=== PATIENT | male | born 1955 | race Caucasian/White ===

== ENCOUNTER → 2017-09-12 | Outpatient (CLI) | payer BC ==
[~2017-09-12] MED LIST: KRIL1000 PO; MULT-506 PO; NUTR-218 PO
[2017-09-12 12:57] LABS: ALT/SGPT 33 U/L (12-78); BLOOD UREA NITROGEN 18 mg/dl (7-18); BUN/CREATININE RATIO 16.5 (10-20); CARBON DIOXIDE 30 mmol/L (21-32); CHLORIDE 103 mmol/L (98-107); CHOLESTEROL 259 mg/dl (0-200); CREATININE 1.11 mg/dl (0.60-1.40); GLUCOSE 125 mg/dl (70-99); POTASSIUM 3.8 mmol/L (3.5-5.1); SODIUM 140 mmol/L (136-145); TRIGLYCERIDES 225 mg/dl (0-150); VERY LOW DENSITY LIPOPROT CALC 45 mg/dl
[2017-09-12 12:59] LABS: ALB/GLOB RATIO 1.2 (0.9-2); ALKALINE PHOSPHATASE 116 U/L (45-117); AST/SGOT 15 U/L (15-37); CHOLESTEROL/HDL RATIO 6.3; HDL CHOLESTEROL 41 mg/dl; LDL CHOLESTEROL CALCULATED 173 mg/dl
== END | disposition home or self-care (01) ==
LOC: C.LABPVFM 07:32
PROVIDERS: ATTEND Nurse Practitioner Family
DX: I10 Essential (primary) hypertension (principal)

== ENCOUNTER → 2018-01-09 | Outpatient (CLI) | payer OTHER ==
[2018-01-09 12:59] LABS: ALT/SGPT 56 U/L (12-78); AST/SGOT 20 U/L (15-37)
== END | disposition home or self-care (01) ==
LOC: C.LABPVFM 08:27
PROVIDERS: ATTEND Nurse Practitioner Family
DX: E78.00 Pure hypercholesterolemia, unspecified (principal)

== ENCOUNTER → 2018-02-20 | Outpatient (CLI) | payer OTHER ==
[2018-02-20 14:04] LABS: ALBUMIN 3.9 gm/dl (3.4-5.0); ALT/SGPT 57 U/L (12-78); AST/SGOT 23 U/L (15-37); BLOOD UREA NITROGEN 14 mg/dl (7-18); CALCIUM 8.9 mg/dl (8.5-10.1); CARBON DIOXIDE 29 mmol/L (21-32); CHOLESTEROL 166 mg/dl (0-200); CREATININE 1.16 mg/dl (0.60-1.40); GLUCOSE 224 mg/dl (70-99); POTASSIUM 4.1 mmol/L (3.5-5.1); SODIUM 138 mmol/L (136-145)
[2018-02-20 14:07] LABS: ALKALINE PHOSPHATASE 139 U/L (45-117); LDL CHOLESTEROL CALCULATED 98 mg/dl; TOTAL PROTEIN 7.2 gm/dl (6.4-8.2)
== END | disposition home or self-care (01) ==
LOC: C.LABPVFM 07:58
PROVIDERS: ATTEND Nurse Practitioner Family
DX: I10 Essential (primary) hypertension (principal); E78.00 Pure hypercholesterolemia, unspecified

== ENCOUNTER 2018-05-22 08:36 | Emergency (ER) | payer OTHER ==
[~2018-05-22] VITALS: Ht 177.8 cm; Wt 96.0 kg
[~2018-05-22 08:36] MED LIST changes: +ASPI81TA28 PO; +ATOR-22 PO; +IBUP-103 PO; -KRIL1000 PO; +LISI-725 PO; -MULT-506 PO; -NUTR-218 PO
[2018-05-22 08:40] VITALS: TEMP 36.4; Ht 177.8 cm; Wt 96.0 kg
[2018-05-22] MEDS ORDERED: SODIUM CHLORIDE 0.9% 1000ML 1,000 ML IV STA ×2 (08:51→10:36)
[2018-05-22] MEDS ORDERED: MoRPHine SULFATE 4 MG/ML 1 ML CARP\\VIAL IV STA (08:51)
[2018-05-22] MEDS ORDERED: OPTIRAY 320 IV PRN (09:00)
--- NOTE | 2018-05-22 09:09 | EMERGENCY ROOM VISIT NOTE ---
History Report prepared by Jovon: Christopher Adkins Under the Supervision of: Dr. Neville James M.D. First contact with patient: 08:48 Chief Complaint: RECTAL BLEEDING Stated Complaint: BLOODY STOOL,BELLY PAIN History of Present Illness The patient is a 62 year old white male with a past medical history of kidney stones, asthma, and polyp removal who presents to the Emergency Room with complaints of intermittent and severe abdominal pain that began this morning at 0400, 5 hours ago. The patient notes that his pain is localized to the left lower abdominal quadrant. He also states that he noticed "medium" red blood in the toiled bowl this morning at 0500, 4 hours ago. He is nauseous as well. The patient did have a recent colonoscopy with polyp removal last week. Source of History: patient Onset: 5 hours ago Position: abdomen (LLQ) Symptom Intensity: severe Timing: intermittent Associated Symptoms: + nausea Note: Rectal bleeding Review of Systems See HPI for pertinent positives and negatives. A total of ten systems were reviewed and were otherwise negative. Past Medical & Surgical Medical Problems: (1) Asthma, Unspecified (2) Calculus Of Kidney (3) History Of Tobacco Use Social History Smoking Status: Never Smoker Marital Status: Housing Status: lives with significant other Current/Historical Medications Scheduled Aspirin (Aspirin Ec), 81 MG PO QPM Atorvastatin (Lipitor), 20 MG PO QPM Ibuprofen Tab (Advil), 400 MG PO PRN Lisinopril (Zestril), 20 MG PO QAM Allergies Coded Allergies: Shellfish (Verified Allergy, Unknown, CRAB? ITCHY RASH HIVES, 05/05/18) Unclassified Drugs (Verified Allergy, Unknown, SOB WITH ASTHMA INHALER- BUTANE PROPELLENT GAVE SOB, 05/05/18) Physical Exam Vital Signs Date Time Temp Pulse Resp B/P (MAP) Pulse Ox O2 Delivery O2 Flow Rate FiO2 05/22/18 11:33 78 16 102/64 05/22/18 10:56 84 16 88/59 97 Room Air 05/22/18 10:36 62 16 81/52 98 Room Air 05/22/18 09:47 74 16 93/63 94 Room Air 05/22/18 09:22 76 16 94/65 94 Room Air 05/22/18 09:07 85 05/22/18 08:40 36.4 123 18 123/70 99 Room Air Physical Exam GENERAL: Awake, alert, well-appearing, NAD HENT: Normocephalic, atraumatic. EYES: Normal conjunctiva. Sclera non-icteric. PERRL. No anisocoria. NECK: Supple. No nuchal rigidity. FROM. RESPIRATORY: CTAB, no rhonchi, wheezing, crackles CARDIAC: Tachycardic and regular, no MRG ABDOMEN: Soft, NTND, BS+, negative obturator's, negative psoas. MSK: No chest wall TTP, no LE edema NEURO: GCS 15, CN 2-12 intact, moves all 4s on command SKIN: No rash or jaundice noted. RECTAL: Exam reveals bright red blood per rectum, no pain, no fissure, no external hemorrhoids. Medical Decision & Procedures ER Provider Diagnostic Interpretation: Radiology results as stated below per my review and radiologist interpretation: ABDOMEN AND PELVIS CT WITH IV CONTRAST CT DOSE: 559.48 mGy.cm HISTORY: Acute generalized abdominal pain ab pain, BRBPR, recent polypectomy on 05/13 TECHNIQUE: Multiaxial CT images of the abdomen and pelvis were performed following the use of intravenous contrast. A dose lowering technique was utilized adhering to the principles of ALARA. COMPARISON STUDY: CT abdomen and pelvis 06/22/2008, KUB 12/12/2014. FINDINGS: Mild dependent subsegmental bibasilar atelectasis. No pneumatosis or pneumoperitoneum identified. Imaged inferior cardiac chambers are unremarkable. Coronary arterial calcifications are noted. Gallbladder, spleen, pancreas and adrenal glands are unremarkable. Mildly decreased attenuation of the liver may reflect hepatic steatosis. No intrahepatic biliary ductal dilation. Nonobstructing left nephrolithiasis with largest calculus measuring 4 mm within the superior pole left kidney. Hypodense lesions about the left kidney measuring up to 1.3 cm suggest renal cysts.Exophytic hyperdense 1.5 cm lesion of the inferior pole right kidney, image 223 series 3 previously measured 7 mm suggesting proteinaceous or hemorrhagic cyst previously noted nonobstructing right nephrolithiasis are not definitively seen on today's contrast-enhanced exam. There are no ureteral calculi or obstructive uropathy. Prostamegaly. Urinary bladder is unremarkable. Fat filled left inguinal hernia. Mild mixed plaquing of the aorta without aneurysm. IVC is within normal limits. There are no pathologically enlarged lymph nodes. There is no bowel obstruction. Air-fluid levels are noted throughout the large bowel. Terminal ileum is unremarkable. The appendix is not definitively seen. No secondary signs of acute appendicitis. No mesenteric inflammatory changes or ascites. There are multiple areas of ill-defined soft tissue nodularity about the subcutaneous tissues, notably about the anterior abdominal wall and lateral flanks measuring up to approximately 8-9 mm. Bones appear intact. IMPRESSION: 1. No acute intra-abdominal or intrapelvic abnormality identified. 2. No pneumoperitoneum, bowel obstruction or focal bowel wall thickening. 3. Air-fluid levels throughout the colon may reflect diarrheal illness. 4. Left nephrolithiasis without ureteral calculi or obstructive uropathy. 5. Hyperdense 1.5 cm exophytic lesion of the inferior pole right kidney is indeterminate on this single phase study however may reflect a hemorrhagic or proteinaceous cyst. 6. Multiple ill-defined subcentimeter areas of soft tissue nodularity about the subcutaneous tissues are indeterminate. Areas of prior medicinal subcutaneous injection could have this appearance. Electronically signed by: Palomo Wong M.D. 05/22/2018 9:59 AM Dictated Date/Time: 05/22/2018 9:45 AM Laboratory Results 05/22/18 08:55 Red Blood Count 4.47, Mean Corpuscular Volume 92.4, Mean Corpuscular Hemoglobin 32.2, Mean Corpuscular Hemoglobin Concent 34.9, Mean Platelet Volume 10.9, Neutrophils (%) (Auto) 53.6, Lymphocytes (%) (Auto) 36.5, Monocytes (%) (Auto) 7.4, Eosinophils (%) (Auto) 1.3, Basophils (%) (Auto) 1.1, Neutrophils # (Auto) 4.04, Lymphocytes # (Auto) 2.75, Monocytes # (Auto) 0.56, Eosinophils # (Auto) 0.10, Basophils # (Auto) 0.08 05/22/18 08:55 Test 05/22/18 08:55 05/22/18 09:05 White Blood Count 7.54 K/uL (4.8-10.8) Red Blood Count 4.47 M/uL (4.7-6.1) Hemoglobin 14.4 g/dL (14.0-18.0) Hematocrit 41.3 % (42-52) Mean Corpuscular Volume 92.4 fL (80-100) Mean Corpuscular Hemoglobin 32.2 pg (25-34) Mean Corpuscular Hemoglobin Concent 34.9 g/dl (32-36) Platelet Count 233 K/uL (130-400) Mean Platelet Volume 10.9 fL (7.4-10.4) Neutrophils (%) (Auto) 53.6 % Lymphocytes (%) (Auto) 36.5 % Monocytes (%) (Auto) 7.4 % Eosinophils (%) (Auto) 1.3 % Basophils (%) (Auto) 1.1 % Neutrophils # (Auto) 4.04 K/uL (1.4-6.5) Lymphocytes # (Auto) 2.75 K/uL (1.2-3.4) Monocytes # (Auto) 0.56 K/uL (0.11-0.59) Eosinophils # (Auto) 0.10 K/uL (0-0.5) Basophils # (Auto) 0.08 K/uL (0-0.2) RDW Standard Deviation 43.3 fL (36.4-46.3) RDW Coefficient of Variation 12.8 % (11.5-14.5) Immature Granulocyte % (Auto) 0.1 % Immature Granulocyte # (Auto) 0.01 K/uL (0.00-0.02) Prothrombin Time 11.1 SECONDS (9.0-12.0) Prothromb Time International Ratio 1.1 (0.9-1.1) Activated Partial Thromboplast Time 23.8 SECONDS (21.0-31.0) Partial Thromboplastin Ratio 0.9 Est Creatinine Clear Calc Drug Dose 78.7 ml/min Estimated GFR () 78.9 Estimated GFR (Non- 68.1 BUN/Creatinine Ratio 17.5 (10-20) Calcium Level 8.7 mg/dl (8.5-10.1) Total Bilirubin 1.0 mg/dl (0.2-1) Direct Bilirubin 0.2 mg/dl (0-0.2) Aspartate Amino Transf (AST/SGOT) 18 U/L (15-37) Alanine Aminotransferase (ALT/SGPT) 35 U/L (12-78) Alkaline Phosphatase 97 U/L (45-117) Total Protein 6.3 gm/dl (6.4-8.2) Albumin 3.6 gm/dl (3.4-5.0) Lipase 88 U/L (73-393) Bedside Hemoglobin 13.6 g/dl (14.0-18.0) Bedside Hematocrit 40 % (42-52) Bedside Sodium 142 mEq/L (135-144) Bedside Potassium 3.8 mEq/L (3.3-5.0) Bedside Chloride 104 mEq/L (101-112) Bedside Total CO2 22 mEq/l (24-31) Anion Gap 20.0 mmol/L (16-25) Bedside Blood Urea Nitrogen 21 mg/dl (7-18) Bedside Creatinine 1.2 mg/dl (0.6-1.3) Bedside Glucose (other) 209 mg/dl (70-99) Bedside Ionized Calcium (Ilia) 1.09 mmol/l (1.12-1.32) Laboratory results reviewed by me Medications Administered Medications (Trade) Dose Ordered Sig/Svetlana Route Start Time Stop Time Status Last Admin Dose Admin Sodium Chloride 1,000 ml @ 999 mls/hr Q1H1M STAT IV 05/22/18 08:51 05/22/18 09:51 DC 05/22/18 09:00 999 MLS/HR Morphine Sulfate (MoRPHine SULFATE INJ) 4 mg NOW STAT IV 05/22/18 08:51 05/22/18 08:54 DC 05/22/18 09:21 4 MG Ondansetron HCl (Zofran Inj) 4 mg STK-MED ONCE .ROUTE 05/22/18 09:18 05/22/18 09:19 DC 05/22/18 09:21 4 MG Sodium Chloride 500 ml @ 999 mls/hr Q31M STAT IV 05/22/18 10:12 05/22/18 10:42 DC 05/22/18 10:24 999 MLS/HR Sodium Chloride 1,000 ml @ 999 mls/hr Q1H1M STAT IV 05/22/18 10:36 05/22/18 11:36 DC 05/22/18 10:54 999 MLS/HR ECG Per My Interpretation Indication: other (Rectal bleed) Rate (beats per minute): 85 Rhythm: normal sinus Findings: other (Normal interval, normal axis, no STS changes or TWI) ED Course 0852: The patient was evaluated in room A12B. A complete history and physical exam was performed. 1015: I discussed the case with Tammy GÓMEZ PA-C. She will evaluate the patient file and discuss with Dr. Dueñas 1029: Tammy Green called back, patient is safe to go home. 1043: I reevaluated the patient. Discussed results and discharge instructions: He verbalized understanding and agreement. The patient is ready for discharge. Medical Decision The patient is a 62 year old white male with a past medical history of kidney stones, asthma, and polyp removal who presents to the Emergency Room with complaints of intermittent and severe abdominal pain that began this morning at 0400, 5 hours ago. Nursing notes reviewed. Ancillary studies and prior records reviewed. Differential diagnosis: Etiologies such as diverticulosis, AVM, coagulopathy, colitis, inflammatory bowel disease, malignancy, Sydney-Cisse tear, esophagitis, peptic ulcer disease , variceal bleed, gastritis, epistaxis, fissure, hemorrhoids, as well as others were entertained. Patient was seen and evaluated the bedside. Patient was complaining of left lower quadrant discomfort with addition to rectal bleeding. Patient was initially tachycardic. On exam the patient does not have any reproducible pain at this time. Patient did have blood work completed along with EKG, troponin and a CT of the abdomen pelvis. Patient was given medications for symptom control. Of note the patient did have a recent polypectomy [address] Dueñas on May 13. Patient's rectal exam did show gross blood. It was painless and without any external hemorrhoids or fissures noted. The patient's blood counts are fairly unremarkable. Patient may have some trace anemia but his hemoglobin is greater than 13. Patient has normal coagulation studies and platelet count. Patient CT does not show any evidence of diverticulitis or bowel perforation. The patient does have left-sided kidney stone as well as right-sided renal cyst. I did discuss these findings with the patient. The patient was feeling improved and the patient again had no pain. The patient was hungry and the patient was ordered a tray which he tolerated without issue. I did discuss the case with the on-call industrial twisting machine operator and the physician veterinary assistant reviewed it with Dr. Dueñas who had performed the initial procedure proximal wy 10 days prior. They wanted to reiterate that the patient hold any aspirin or NSAIDs until next week and that the patient should call the office for follow-up appointment within 1 week and to call sooner if it worsens. Patient was deemed suitable for outpatient follow-up and treatment at this time. Patient was given strict follow-up, discharge, and return precautions. All questions were answered. Patient was deemed suitable for outpatient follow-up at this time. Patient agreed with the plan of care and was safely discharged home. Medication Reconcilliation Current Medication List: was personally reviewed by me Blood Pressure Screening Patient's blood pressure: Low blood pressure Consults Time Called: 1010 Consulting Physician: Tammy GÓMEZ PA-C Returned Call: 1015 I discussed the case with Tammy GÓMEZ PA-C. She will evaluate the patient file and discuss with Dr. Dueñas 1029: Tammy Green called back, patient is safe to go home. Impression Primary Impression: Rectal bleeding Scribe Attestation The scribe's documentation has been prepared under my direction and personally reviewed by me in its entirety. I confirm that the note above accurately reflects all work, treatment, procedures, and medical decision making performed by me. Departure Information Dispostion Home / Self-Care Referrals No Doctor, Assigned (PCP) Spenser, Morris Bryan D.O. Patient Instructions Bleeding Rectal, My [facility] Additional Instructions Please return to the emergency department if you have worsening or recurrent symptoms not amenable to at-home treatment. Please call for a follow-up appointment with her primary care physician. Please take your medications as prescribed. If you have other concerns and/or complaints please feel free to also call your primary care physician's office or return the ED for further evaluation, management, and treatment. You received narcotic or benzodiazepene medication while in the emergency room today. This is an addictive medication that may cause drowziness as well as constipation. Do not drive, operate heavy machinery, or drink alcohol under the influence of this medication. Please make sure that you do not take any NSAID medication like ibuprofen, Motrin, Aleve, Advil, and/or aspirin. Please call the gastroenterology office for an appointment within 1 week you may call sooner if you have worsening or persistent symptoms. Take your other medications as prescribed. You have been examined and treated today on an emergency basis only. This is not a substitute for, or an effort to provide, complete comprehensive medical care. It is impossible to recognize and treat all injuries or illnesses in a single emergency department visit. It is therefore important that you follow up closely with [facility], your PCP, and/or your specialist(s). Call as soon as possible for an appointment. Thank you for your time and consideration. I look forward to speaking with you again soon. Please don't hesitate to call us if you have any questions.
[2018-05-22 09:13] LABS: BASO % 1.1 %; BASO ABS # 0.08 K/uL (0-0.2); EOS % 1.3 %; HEMATOCRIT 41.3 % (42-52); HEMOGLOBIN 14.4 g/dL (14.0-18.0); IG# 0.01 K/uL (0.00-0.02); LYMPH % 36.5 %; LYMPH ABS # 2.75 K/uL (1.2-3.4); MEAN CELL VOLUME 92.4 fL (80-100); MEAN CORPUSCULAR HEMOGLOBIN 32.2 pg (25-34); MEAN CORPUSCULAR HGB CONC 34.9 g/dl (32-36); MEAN PLATELET VOLUME 10.9 fL (7.4-10.4); MONO % 7.4 %; MONO ABS # 0.56 K/uL (0.11-0.59); NEUT % 53.6 %; NEUT ABS # 4.04 K/uL (1.4-6.5); PLATELET COUNT 233 K/uL (130-400); RED CELL DISTRIBUTION WIDTH CV 12.8 % (11.5-14.5); RED CELL DISTRIBUTION WIDTH SD 43.3 fL (36.4-46.3); WHITE BLOOD COUNT 7.54 K/uL (4.8-10.8)
[2018-05-22] MEDS ORDERED: ONDANSETRON INJ 2 MG/ML 2 ML VIAL IV STA (09:18)
[2018-05-22] MEDS ORDERED: ONDANSETRON INJ 2 MG/ML 2 ML VIAL ONE (09:18)
[2018-05-22 09:20] LABS: INR 1.1 (0.9-1.1); PTT PATIENT 23.8 SECONDS (21.0-31.0)
[2018-05-22 09:21] LABS: ISTAT CREATININE 1.2 mg/dl (0.6-1.3); ISTAT IONIZED CALCIUM 1.09 mmol/l (1.12-1.32); ISTAT POTASSIUM 3.8 mEq/L (3.3-5.0)
[2018-05-22 09:35] LABS: ALBUMIN 3.6 gm/dl (3.4-5.0); CALCIUM 8.7 mg/dl (8.5-10.1); CREATININE 1.16 mg/dl (0.60-1.40); POTASSIUM 3.8 mmol/L (3.5-5.1); TOTAL PROTEIN 6.3 gm/dl (6.4-8.2)
--- NOTE | 2018-05-22 10:00 | DIAGNOSTIC IMAGING REPORT ---
ABDOMEN AND PELVIS CT WITH IV CONTRAST CT DOSE: 559.48 mGy.cm HISTORY: Acute generalized abdominal pain ab pain, BRBPR, recent polypectomy on 05/13 TECHNIQUE: Multiaxial CT images of the abdomen and pelvis were performed following the use of intravenous contrast. A dose lowering technique was utilized adhering to the principles of ALARA. COMPARISON STUDY: CT abdomen and pelvis 06/22/2008, KUB 12/12/2014. FINDINGS: Mild dependent subsegmental bibasilar atelectasis. No pneumatosis or pneumoperitoneum identified. Imaged inferior cardiac chambers are unremarkable. Coronary arterial calcifications are noted. Gallbladder, spleen, pancreas and adrenal glands are unremarkable. Mildly decreased attenuation of the liver may reflect hepatic steatosis. No intrahepatic biliary ductal dilation. Nonobstructing left nephrolithiasis with largest calculus measuring 4 mm within the superior pole left kidney. Hypodense lesions about the left kidney measuring up to 1.3 cm suggest renal cysts.Exophytic hyperdense 1.5 cm lesion of the inferior pole right kidney, image 223 series 3 previously measured 7 mm suggesting proteinaceous or hemorrhagic cyst previously noted nonobstructing right nephrolithiasis are not definitively seen on today's contrast-enhanced exam. There are no ureteral calculi or obstructive uropathy. Prostamegaly. Urinary bladder is unremarkable. Fat filled left inguinal hernia. Mild mixed plaquing of the aorta without aneurysm. IVC is within normal limits. There are no pathologically enlarged lymph nodes. There is no bowel obstruction. Air-fluid levels are noted throughout the large bowel. Terminal ileum is unremarkable. The appendix is not definitively seen. No secondary signs of acute appendicitis. No mesenteric inflammatory changes or ascites. There are multiple areas of ill-defined soft tissue nodularity about the subcutaneous tissues, notably about the anterior abdominal wall and lateral flanks measuring up to approximately 8-9 mm. Bones appear intact. IMPRESSION: 1. No acute intra-abdominal or intrapelvic abnormality identified. 2. No pneumoperitoneum, bowel obstruction or focal bowel wall thickening. 3. Air-fluid levels throughout the colon may reflect diarrheal illness. 4. Left nephrolithiasis without ureteral calculi or obstructive uropathy. 5. Hyperdense 1.5 cm exophytic lesion of the inferior pole right kidney is indeterminate on this single phase study however may reflect a hemorrhagic or proteinaceous cyst. 6. Multiple ill-defined subcentimeter areas of soft tissue nodularity about the subcutaneous tissues are indeterminate. Areas of prior medicinal subcutaneous injection could have this appearance. Electronically signed by: Palomo Wong M.D. 05/22/2018 9:59 AM Dictated Date/Time: 05/22/2018 9:45 AM
[2018-05-22] MEDS ORDERED: SODIUM CHLORIDE 0.9% 500ML 500 ML IV STA (10:12)
[2018-05-22 14:05] VITALS: BP 136/75; PULSE 85; O2SAT 95
== END 2018-05-22 14:06 | disposition home or self-care (01) ==
LOC: C.EDB 08:37 → C.EDA 14:06
DX: K62.5 Hemorrhage of anus and rectum (principal); R10.32 Left lower quadrant pain; R11.0 Nausea; J45.909 Unspecified asthma, uncomplicated; Z79.82 Long term (current) use of aspirin; Z79.899 Other long term (current) drug therapy; Z87.442 Personal history of urinary calculi; Z91.013 Allergy to seafood